=== PATIENT | male | born 1945 | race Two or more races ===

== ENCOUNTER 2016-11-29 13:14 | Observation (INO) ==
[2016-11-29 13:32] LABS: BASOPHILS % (AUTO) 0.5 % (0.0-3.0); EOSINOPHILS # (AUTO) 0.2 K/ul (0.0-0.7); EOSINOPHILS % (AUTO) 2.7 % (0.0-7.0); HEMATOCRIT 36.1 % (42.0-52.0); HEMOGLOBIN 12.6 g/dl (14.0-18.0); IMMATURE GRANULOCYTE % (AUTO) 0.3 % (0.0-5.0); LYMPHOCYTES # (AUTO) 2.9 K/uL (0.60-3.4); LYMPHOCYTES % (AUTO) 36.9 (10.0-50.0); MEAN CORPUSCULAR HEMOGLOBIN 31.2 pg (27.0-31.0); MEAN CORPUSCULAR HGB CONC 34.9 (31.8-35.4); MEAN CORPUSCULAR VOLUME 89.4 fl (80.0-94.0); MONOCYTES # (AUTO) 0.6 K/uL (0.4-2.0); MONOCYTES % (AUTO) 7.7 (0-10); NEUTROPHILS % (AUTO) 51.9; PLATELET COUNT 201 10^3/uL (140-440); RED BLOOD COUNT 4.04 10^6/ul (4.70-6.10); WHITE BLOOD COUNT 7.77 K/ul (4.2-10.2)
[2016-11-29 14:09] LABS: ALANINE AMINOTRANSFERASE 17 U/L (12-78); ALBUMIN 4.2 g/dL (3.4-5.0); ALBUMIN/GLOBULIN RATIO 1.35; ALKALINE PHOSPHATASE 44 U/L (56-119); ANION GAP 13.9; ASPARTATE AMINO TRANSFERASE 29 U/L (15-37); BILIRUBIN,TOTAL 0.58 mg/dL (0.00-1.20); BLOOD UREA NITROGEN 15 mg/dL (7-18); CALCIUM 9.8 mg/dL (8.2-10.2); CARBON DIOXIDE 25 mmol/L (23-31); CHLORIDE 105 mmol/L (98-107); CREATINE KINASE 294 U/L; CREATININE 1.26 mg/dL (0.60-1.10); GLUCOSE 95 mg/dL (82-115); POTASSIUM 3.9 mmol/L (3.5-5.1); SODIUM 140 mmol/L (136-145); TOTAL PROTEIN 7.3 g/dL (5.8-8.1)
[2016-11-29 14:10] LABS: CREATINE KINASE MB 3.9 ng/ml (0.0-3.6)
--- NOTE | 2016-11-29 14:24 | ED.PDOC ---
General ED Provider: Dr. TYRESE GOMEZ Chief Complaint: Chest Pain Stated Complaint: chest pain Time Seen by Physician: 13:23 (seen with respiratory , and mary) Mode of Arrival: Walk-In Information Source: Patient Exam Limitations: No limitations Primary Care Provider: SCARLET ANTONY Nursing and Triage Documentation Reviewed and Agree: Yes Cardiovascular Complaint Exam - Chest Pain Complaint/Exam Onset: Gradual Duration: this morning Symptoms Are: Still present Initial Severity: Mild Current Severity: None Location: Reports: Midsternal Pain Radiates: Reports: None Character: Reports: Dull, Aching Aggravating: Reports: None Alleviating: Reports: None Associated Signs and Symptoms: Reports: Hemoptysis Prior Care for this Complaint: No Recent Stress Test: No Recent Echo/LV Function: No JVD Present: No Subcutaneous Emphysema Present: No Diminshed Breath Sounds: No Reproducible Chest Wall Pain: No Bilateral Pulses Present: Yes Unequal Pulses Noted: No If Risk Factors for AMI/ACS Consider: EKG, Cardiac Enzymes Review of Systems - Review Of Systems Constitutional: Reports: No symptoms Eyes: Reports: No symptoms Ears, Nose, Mouth, Throat: Reports: No symptoms Respiratory: Reports: No symptoms Cardiac: Reports: Chest pain GI: Reports: No symptoms : Reports: No symptoms Musculoskeletal: Reports: No symptoms Skin: Reports: No symptoms Neurological: Reports: No symptoms Endocrine: Reports: No symptoms Hematologic/Lymphatic: Reports: No symptoms All Other Systems: Reviewed and Negative Past Medical History - Past Medical History Previously Healthy: Yes Endocrine: Reports: Dyslipidemia Cardiovascular: Reports: None Respiratory: Reports: None Hematological: Reports: None Gastrointestinal: Reports: GERD Genitourinary: Reports: None Neuro/Psych: Reports: None Musculoskeletal: Reports: None Cancer: Reports: None - Surgical History General Surgical History: Reports: None - Family History Family History: Reports: None - Social History Smoking Status: Never smoker Hx Substance Use: No Alcohol Screening: None - Immunizations Tetanus Shot up to Date: No Physical Exam - Physical Exam Appearance: Well-appearing, No pain distress, Well-nourished Eyes: MARK, EOMI, Conjunctiva clear ENT: Ears normal, Nose normal, Oropharynx normal Respiratory: Airway patent, Breath sounds clear, Breath sounds equal, Respirations nonlabored Cardiovascular: RRR, Pulses normal, No rub, No murmur GI/: Soft, Nontender, No masses, Bowel sounds normal, No Organomegaly Musculoskeletal: Normal strength, ROM intact, No edema, No calf tenderness Skin: Warm, Dry, Normal color Neurological: Sensation intact, Motor intact, Reflexes intact, Cranial nerves intact, Alert, Oriented Psychiatric: Affect appropriate, Mood appropriate Interpretation - Radiology Interpretation Radiology Interpretation By: Radiologist Radiology Results: Negative Exam Interpreted: CXR - Carpet Cutter Rate: Normal Rhythm: Sinus Ectopy: None Physician Notification - Case Discussed Physician Notified: pmd Time of Notification: 14:24 (admitt telm) Admit To: Inpatient Critical Care Note - Critical Care Note Total Time (mins): 0 Course - Course Hematology/Chemistry: 11/29/16 13:26 11/29/16 13:26 Orders, Labs, Meds: Lab Review 11/29/16 13:26 WBC 7.77 RBC 4.04 L Hgb 12.6 L Hct 36.1 L MCV 89.4 MCH 31.2 H MCHC 34.9 RDW Coeff of Zelda 13.5 Plt Count 201 Immature Gran % (Auto) 0.3 Neut % (Auto) 51.9 Lymph % (Auto) 36.9 [place] % (Auto) 7.7 Eos % (Auto) 2.7 Baso % (Auto) 0.5 Immature Gran # (Auto) 0.0 Neut # 4.0 Lymph # 2.9 [place] # 0.6 Eos # 0.2 Baso # 0.0 Sodium 140 Potassium 3.9 Chloride 105 Carbon Dioxide 25 Anion Gap 13.9 BUN 15 Creatinine 1.26 H Estimated GFR (MDRD) 57.00 BUN/Creatinine Ratio 11.90 Glucose 95 Calcium 9.8 Total Bilirubin 0.58 AST 29 ALT 17 Alkaline Phosphatase 44 L Total Creatine Kinase 294 CK-MB (CK-2) 3.9 H CK-MB (CK-2) % 1.66557 Troponin I < 0.0100 Total Protein 7.3 Albumin 4.2 Globulin 3.1 Albumin/Globulin Ratio 1.35 Orders Category Date Time Status EKG-(ED ONLY) Stat CARDIO 11/29/16 13:23 Completed ED IV/MEDIPORT/POWERPORT .ONCE EMERGENCY 11/29/16 13:23 Active CBC W/ AUTO DIFF Stat LAB 11/29/16 13:26 Completed COMPREHENSIVE METABOLIC PANEL Stat LAB 11/29/16 13:26 Completed CREATINE KINASE Stat LAB 11/29/16 13:26 Completed TROPONIN I Stat LAB 11/29/16 13:26 Completed 0.9 % Sodium Chloride [Saline Flush] MEDS 11/29/16 13:23 Active 1 syr IVF PRN PRN Medications Generic Name Dose Route Start Last Admin Trade Name Freq PRN Reason Stop Dose Admin Sodium Chloride 1 syr 11/29/16 13:23 Saline Flush IVF PRN PRN To flush IV Vital Signs: Temp Pulse Resp BP Pulse Ox 11/29/16 13:22 98.6 F 73 16 109/83 95 CORINNA Risk Score CORINNA Risk Score: Risk Score Odds of by 30D 0 0.1 (0.1-0.2) 1 0.3 (0.2-0.3) 2 0.4 (0.3-0.5) 3 0.7 (0.6-0.9) 4 1.2 (1.0-1.5) 5 2.2 (1.9-2.6) 6 3.0 (2.5-3.6) 7 4.8 (3.8-6.1) Departure - Departure Time of Disposition: 14:24 Disposition: ADMITTED INPATIENT Discharge Problem: Chest pain Instructions: Chest Pain (ED) Condition: Good Pt referred to PMD for follow-up: Yes (admitt) Allergies/Adverse Reactions: Allergies No Known Allergies Allergy (Unverified 07/13/14 11:05) Home Medications: Ambulatory Orders Ranitidine HCl [Zantac] 150 mg PO BID 08/25/13 Aspirin [Ecotrin] 81 mg PO DAILY 07/13/14 Atorvastatin Calcium [Lipitor] 20 mg PO DAILY 07/13/14 Calcium Carbonate [Calcium] 600 mg PO DAILY 07/13/14 Multivit-Min/FA/Lycopene/Lut [Centrum Silver Tablet] 1 each PO DAILY 07/13/14 Disposition Discussed With: Patient
--- NOTE | 2016-11-29 15:13 | DI ---
EXAM: Chest two view, frontal and lateral views. HISTORY: Chest pain. COMPARISON: 07/13/2014. FINDINGS: The heart size is normal. There is no pulmonary vascular congestion. The lungs are asif r save for calcified granulomatous change. No pleural effusion or pneumothorax is seen. No acute o sseous abnormality identified. IMPRESSION: No acute cardiopulmonary process.
[2016-11-29 15:38] VITALS: BMI 26.2
[2016-11-29] MEDS ORDERED: TORADOL IVP STA (15:55)
[2016-11-29] MEDS ORDERED: DECADRON 4 MG/ML SDV IM STA (15:55)
[2016-11-29] MEDS ORDERED: TORADOL IVP PRN (15:55)
[2016-11-29] MEDS: SODIUM CHLORIDE 1,000 ML IV SCH (16:29)
[2016-11-29 20:51] LABS: CREATINE KINASE 252 U/L
[2016-11-29 20:53] LABS: CREATINE KINASE MB 4.2 ng/ml (0.0-3.6)
[2016-11-30] MEDS ORDERED: MYLANTA SUSP PO STA (03:58)
[2016-11-30 05:19] LABS: BASOPHILS % (AUTO) 0.1 % (0.0-3.0); HEMATOCRIT 35.3 % (42.0-52.0); HEMOGLOBIN 12.2 g/dl (14.0-18.0); IMMATURE GRANULOCYTE % (AUTO) 0.4 % (0.0-5.0); LYMPHOCYTES # (AUTO) 1.1 K/uL (0.60-3.4); MEAN CORPUSCULAR HGB CONC 34.6 (31.8-35.4); MEAN CORPUSCULAR VOLUME 89.6 fl (80.0-94.0); MONOCYTES # (AUTO) 0.1 K/uL (0.4-2.0); NEUTROPHILS # (AUTO) 6.6 K/ul (2.0-6.9); NEUTROPHILS % (AUTO) 84.5; PLATELET COUNT 187 10^3/uL (140-440); RED BLOOD COUNT 3.94 10^6/ul (4.70-6.10); WHITE BLOOD COUNT 7.83 K/ul (4.2-10.2)
[2016-11-30] MEDS: SODIUM CHLORIDE 1,000 ML IV SCH (05:29)
[2016-11-30 05:43] LABS: ALBUMIN 3.5 g/dL (3.4-5.0); ALBUMIN/GLOBULIN RATIO 1.3; ANION GAP 19.2; BILIRUBIN,TOTAL 0.42 mg/dL (0.00-1.20); BUN/CREATININE RATIO 15.65; CALCIUM 8.5 mg/dL (8.2-10.2); CREATININE 1.15 mg/dL (0.60-1.10); POTASSIUM 4.2 mmol/L (3.5-5.1); TOTAL PROTEIN 6.2 g/dL (5.8-8.1)
[2016-11-30 05:58] LABS: CREATINE KINASE 253 U/L
[2016-11-30 06:02] LABS: CREATINE KINASE MB 4.4 ng/ml (0.0-3.6)
[2016-11-30] MEDS ORDERED: LIPITOR PO SCH ×2 (09:00→21:00)
[2016-11-30] MEDS ORDERED: ASPIRIN EC PO SCH (09:00)
[2016-11-30 11:13] VITALS: BP 110/72; TEMP 96.3
--- NOTE | 2016-12-02 10:47 | ECHOSTRESS ---
Date of Exam: 11/30/16 Ordering Physician: SCARLET ANTONY Reason for Echo: LEFT CHEST PAIN, HTN, STRESS TEST--NO ISCHEMIA M-Mode Normal Adult Results LV Dimensions Normal Adult Results AoV Opening excursions >1.6 LVEDD-base- 3.5-5.8 Ao root dimensions 2.0-3.7 LVESD-base- 3.1-4.6 L. Atrium dimensions 1.9-3.8 Post. Wall thickness 0.8-1.1 IV septum (thickness) 0.7-1.2 Post. Wall excursion 0.72-1.3 Septal motion Systolic motion R. Ventricular cavity 1.5-2.0 LVEF 60% Paradoxical septal wall motion 2-D: NORMAL LEFT VENTRICULAR CONTRACTILITY--RESTING AND POST EXERCISE M-MODE: MV: AV: TV: PV: CHAMBER SIZE: WALL MOTION: NORMAL LEFT VENTRICULAR CONTRACTILITY--RESTING AND POST EXERCISE PERICARDIUM: INTERPRETATION: 1. NORMAL LEFT VENTRICULAR CONTRACTILITY--RESTING AND POST EXERCISE MTDD
--- NOTE | 2016-12-02 11:10 | ECHO2D ---
Date of Exam: 11/30/16 Ordering Physician: SCARLET ANTONY Reason for Echo: LEFT CHEST PAIN/ HYPERTENSION Auscultation: S1, S2 M-Mode Normal Adult Results LV Dimensions Normal Adult Results AoV Opening excursions >1.6 >1.6 LVEDD-base- 3.5-5.8 4.8 Ao root dimensions 2.0-3.7 3.0 LVESD-base- 3.1-4.6 L. Atrium dimensions 1.9-3.8 3.1 Post. Wall thickness 0.8-1.1 1.0 IV septum (thickness) 0.7-1.2 1.1 Post. Wall excursion 0.72-1.3 NORMAL Septal motion NORMAL Systolic motion R. Ventricular cavity 1.5-2.0 NORMAL LVEF 60% 62% Paradoxical septal wall motion NORMAL 2-D : 2-D M Mode Echocardiogram was performed using apical four chamber and left parasternal long and short axis views. Mitral, tricuspid and aortic valves appear to be normal. Contractility of the left ventricle seems to be normal, so is the cavity size. Left atrial cavity size and aortic root appear to be normal. There is no pericardial effusion. There is no thrombus noted in the left ventricular or left aortic cavity. No mitral valve prolapse noted. M-MODE: MV: NORMAL AV: NORMAL TV: NORMAL PV: CHAMBER SIZE: NORMAL WALL MOTION: NORMAL PERICARDIUM: NORMAL INTERPRETATION: 1. NORMAL 2 "D" "M" MODE ECHO MTDD
--- NOTE | 2016-12-02 11:17 | MODSTECHO ---
Ordering Physician: SCARLET ANTONY Date of Test: 11/30/16 Medical History: CHEST PAIN, HYPERTENSION Current Medications: MYLANTA, LIPITOR, TORADOL Physical Findings: S1, S2, NO S3 Resting EKG: SINUS RHYTHM/NO ACUTE CHANGES Target Heart Rate: 127 STAGE MPH/GRADE HEART RATE BPM BLOOD PRESSURE mmhg RHYTHM S-T SEGMENT UP DOWN SYMPTOMS,COMMENTS At Rest 65 112/60 SR X NONE 1 1.7/0% 2 1.7/5% 3 1.7/10% 4 2.5/12% 5 3.4/14% 6 4.2/16% 7 5.18% Immediately after 129 SR X FATIGUE Total Time: 1:34 Maximum Heart Rate Reached: 129 Reason for Termination: FATIGUE 3 MINUTES POST EXERCISE: HR 68 BPM, BP 110/70 MMHG, SR, +/- INTERPRETATION: 95% OXYGEN SATURATION ON ROOM AIR AND 96% WITH EXERCISE 1. NO EVIDENCE OF ISCHEMIA BY ST-T WAVE 2. NO CHEST PAIN OR CHEST DISCOMFORT 3. NO ARRHYTHMIAS 4. BLOOD PRESSURE RESPONSE NORMAL NORMAL LEFT VENTRICULAR CONTRACTILITY--RESTING AND POST EXERCISE MTDD
--- NOTE | 2016-12-02 11:58 | HP ---
DATE OF SERVICE: 11/29/16 - ADMITTING NOTE REASON FOR HOSPITALIZATION: Chest pain. HISTORY OF PRESENT ILLNESS: Bernard Kam, a 71-year-old male came to the emergency room because of left- sided localized chest pain, which was mid axillary line over the pectoris muscle laterally. The patient said that when he had that he had mild sweating, no shortness of breath, onset of pain was more than nearly one hours' duration before he came to the emergency room. The patient does not have any exertional chest discomfort or shortness of breath with exertion. REVIEW OF SYSTEMS: CONSTITUTIONAL: No night sweats. No fatigue, malaise, lethargy. No fever or chills. HEENT: Eyes: No visual changes. No eye pain. No eye discharge. ENT: No runny nose. No epistaxis. No sinus pain. No sore throat. No odynophagia. No congestion. RESPIRATORY: No cough, no congestion. No hemoptysis. CARDIOVASCULAR: No angina symptoms. No CHF symptoms. Chest pain, left-sided, localized, unrelated to exertion, no radiation of pain, just at one spot over a quarter size area. No palpitations. No shortness of breath. GASTROINTESTINAL: No abdominal pain. No nausea or vomiting. No diarrhea or constipation. No hematemesis. No hematochezia. GENITOURINARY: No urgency. No frequency. No dysuria. No hematuria. No obstructive symptoms. No discharge. No pain. No significant abnormal bleeding. MUSCULOSKELETAL: No musculoskeletal pain; no joint swelling. NEUROLOGICAL: No headache. No neck pain. No syncope. No seizures. No dizziness. PSYCHIATRIC: Not anxious. No depression. No suicidal thoughts. No homicidal thoughts. SKIN: No rash. No lesions. No wounds. ENDOCRINE: No unexplained weight loss. No weight gain. HEMATOLOGIC/LYMPHATIC: No anemia. No purpura. No petechiae. No prolonged or excessive bleeding. No palpable lymph nodes. PAST MEDICAL/SURGICAL HISTORY: Hypertension Dyslipidemia Generalized osteoarthritis Colonoscopy 07/06/14 MEDICATIONS: (HOME) Ranitidine (Zantac) 150 mg p.o. b.i.d. Calcium 600 mg p.o. daily Aspirin 81 mg p.o. daily Multivitamin/Lycopene/Lut (Centrum Silver) one each p.o. daily Atorvastatin Calcium (Lipitor) 20 mg p.o. daily Tylenol for arthritis ALLERGIES: NKDA PERSONAL/FAMILY/SOCIAL HISTORY: The patient is , lives with . Nonsmoker. No alcohol abuse. He works at the local [employer]. He does all activity of daily living. PHYSICAL EXAMINATION: GENERAL: The patient is oriented to time, place and person. VITAL SIGNS: Temperature 98.5, pulse 70, respiratory rate 15, BP 136/76. HEENT: Head normocephalic, atraumatic. Eyes: Extraocular muscles are intact. Pupils are equal, round and reactive to light and accommodation. Ears: No lesions. Nose appeared normal. Throat: No exudate or erythema. NECK: Supple. No JVD, no carotid bruit. No lymphadenopathy or thyromegaly. LUNGS: Clear to auscultation. Percussion note normal. Chest symmetrical. HEART: S1, S2, no S3. No murmurs. No cyanosis or clubbing. No ascites. Pulses: Dorsalis pedis and posterior tibial pulses +1 to +2 both sides. ABDOMEN: Soft. Nontender. Bowel sounds active. No CVA tenderness. No mass felt. EXTREMITIES: No edema. Full range of motion of all extremities, equal. NEUROLOGIC: No focal deficit. Cranial nerves II through XII are grossly intact. No headache, no double vision or headache. SKIN: Not dry. Intact. Turgor - normal. LYMPHATIC: No palpable lymph nodes/no lymphedema. MUSCULOSKELETAL: Normal joints with no swelling. Muscle tone is normal. LABS/EKG: EKG - sinus rhythm. No acute changes. Telemetry sinus rhythm, no ST wave change. Cardiac markers are negative. CK-MB 3.5 which is normal. Troponin negative. ASSESSMENT: 1. CHEST PAIN SEEMS TO BE ATYPICAL FOR CORONARY INSUFFICIENCY. RISK FACTORS FOR CORONARY ARTERY DISEASE, HYPERTENSION, DYSLIPIDEMIA, INACTIVITY. 2. GENERALIZED OSTEOARTHRITIS. PLAN: 1. Continue telemetry. 2. Toradol 30 mg IV now. 3. 1 cc Decadron IM now. (#2 and #3 for musculoskeletal type of pain the patient has.) 4. Coronary artery disease and risk factors discussed with the patient. 5. Will do echocardiogram in the morning and stress echo along with it. CONDITION: Stable. It is to be noted that I speak the patient's language which is Gujarati. TIME SPENT: More than 30 minutes. [facility]
--- NOTE | 2016-12-03 14:53 | DS ---
DATE OF SERVICE: 11/30/16 - DISCHARGE NOTE/DISCHARGE SUMMARY - OBSERVATION FINAL DIAGNOSIS: 1. CHEST PAIN, NONCARDIAC 2. GENERALIZED OSTEOARTHRITIS INVOLVING CERVICAL SPINE AND LUMBAR SPINE 3. DYSLIPIDEMIA 4. HYPERGLYCEMIA 5. GLUCOSE INTOLERANCE 6. MILD ANEMIA 7. GASTROESOPHAGEAL REFLUX DISEASE DISCHARGE INSTRUCTIONS: Please call your primary care physician or go to the nearest emergency room if you have any adverse reactions. . MEDICATIONS AT DISCHARGE: 1. Ranitidine 150 mg twice a day 2. Aspirin 81 mg p.o. daily 3. Lipitor 20 mg p.o. daily 4. Calcium Carbonate and multivitamin as before NEW PRESCRIPTIONS: None DIET INSTRUCTIONS: Heart Healthy diet. ACTIVITY: As the patient tolerates. SMOKING: Nonsmoker DISEASE SPECIFIC EDUCATION: HOSPITAL COURSE: 71-year-old white male hospitalized with chest pain which was practically atypical. The patient was worked up with cardiac markers which were negative. Telemetry showed sinus rhythm with no acute changes. The patient's echo showed normal LV contractility. Stress echo was negative for any ischemia. The patient was up and about. The patient was reassured that his pain was practically atypical. Risk factors were explained to him. Hyperglycemia was discussed with him. The patient's A1C has been acceptable, less than 6.5. Diet was discussed with him with activity. Condition at the time of discharge stable. The patient, on the day of discharge, had hemoglobin of 12.2, hematocrit 35, WBC 7,800, normal differential. The patient's vitals were temperature 97.7, pulse 60, respiratory rate 16, BP 109/73, pulse ox 95%. PHYSICAL EXAMINATION: LUNGS: Clear. HEART: S1, S2, no S3. ABDOMEN: Soft. Bowel sounds active. LABS: Hemoglobin 12.2, hematocrit 35, WBC 7,800, normal differential. Creatinine 1.1, BUN 18, potassium 4.2, glucose 152. CONDITION: Stable TIME SPENT: More than [address] [facility]
--- NOTE | 2016-12-04 11:01 | PN ---
CODING FOR BILLING 11/29/16 - OBSERVATION - LEVEL 5 11/30/16 - DISCHARGE - EXTENSIVE MTDD
== END 2016-11-30 14:15 | disposition home or self-care (01) ==
LOC: ED 13:14 → INTOOBSV 14:35 → MEDSURG A 14:35
PROVIDERS: ADMIT Internal Medicine; ATTEND Internal Medicine
DX: R07.89 Other chest pain (principal); E74.39 Other disorders of intestinal carbohydrate absorption; K21.9 Gastro-esophageal reflux disease without esophagitis; D64.9 Anemia, unspecified; M47.892 Other spondylosis, cervical region; M47.896 Other spondylosis, lumbar region; E78.5 Hyperlipidemia, unspecified; R73.9 Hyperglycemia, unspecified
CPT/HCPCS: 36415; 80053; 82550; 82553; 84484; 85025; 85379; 93005; 93010; 99217; 99220; 99284

== ENCOUNTER 2017-08-29 11:32 | Outpatient (CLI) ==
--- NOTE | 2017-08-29 14:49 | CT ---
Exam: CT maxillofacial without intravenous contrast. Comparison: CT brain performed 07/13/2014. Reason for exam: Salivary gland swelling. FINDINGS: No displaced facial fractures are seen. The frontal sinuses, maxillary sinuses, and sphen oid sinuses appear normally pneumatized. There is mild mucosal thickening in the ethmoid sinuses. N o displaced facial fractures are seen. No inflammatory changes are seen within the parotid, submandi bular, or thyroid glands. The partially imaged aerodigestive tract appears unremarkable. The patient is partially edentulous. Moderate to severe degenerative disease is seen within the cervical spine with intervertebral body di sc space height loss and reversal of the cervical lordotic curve. There are multiple sub centimeter lymph nodes seen in both parotid glands. Impression: 1. No displaced facial fractures. 2. No discrete fluid collections or contrast enhancing mass lesions. 3. Small sub-centimeter lymph nodes are seen in both parotid glands. 4. Mucosal thickening in the ethmoid sinuses may represent sinus disease. 5. Moderate to severe degenerative disease in the cervical spine
== END 2017-08-29 11:33 | disposition home or self-care (01) ==
LOC: RAD 11:32
PROVIDERS: ATTEND Internal Medicine
DX: K11.8 Other diseases of salivary glands (principal)

== ENCOUNTER 2017-08-29 15:56 | Emergency (ER) | payer OTHER ==
[2017-08-29 16:00] VITALS: BP 102/60; TEMP 97.7; BMI 25.5
[2017-08-29] MEDS ORDERED: ASPIRIN CHEWABLE PO STA (16:10)
--- NOTE | 2017-08-29 18:10 | DI ---
Exam: Single x-ray of the chest. Comparison: 11/29/2016 Reason for exam: Pain. FINDINGS: No pneumothorax, pleural effusion, or focal consolidation. There is elevation right hemid iaphragm not significantly changed from the previous exam. The cardiac silhouette is not enlarged. Impression: No acute cardiopulmonary process. Report faxed at [phone] hours on 08/29/2017
--- NOTE | 2017-08-29 18:23 | ED.PDOC ---
General ED Provider: Dr. TYRESE GOMEZ Chief Complaint: Chest Pain Stated Complaint: CHEST PAIN Time Seen by Physician: 15:00 (CHEST PAIN ONSET 9 M) Mode of Arrival: Walk-In Information Source: Patient Exam Limitations: No limitations Primary Care Provider: SCARLET ANTONY Nursing and Triage Documentation Reviewed and Agree: Yes Reviewed sepsis parameters & appropriate labs ordered?: Yes System Inflammatory Response Syndrome: Not Applicable Sepsis Protocol: For patient's 13 years and over: Temp is 96.8 and below OR 101 and greater Pulse >90 BPM Resp >20/minute Acutely Altered Mental Status Are patient's symptoms suggestive of a new infection, such as: -Pneumonia -Skin, Soft Tissue -Endocarditis -UTI -Bone, Joint Infection -Implantable Device -Acute Abdominal Infection -Wound Infection -Meningitis -Blood Stream Catheter Infection -Unknown System Inflammatory Response Syndrome: Not Applicable Cardiovascular Complaint Exam - Chest Pain Complaint/Exam Onset: Gradual Duration: 7 HOURS Symptoms Are: Resolved Timing: Intermittent Length of Chest Pain Episodes: 7 H Initial Severity: Mild Current Severity: Mild Location: Reports: Midsternal Pain Radiates: Reports: None Character: Reports: Dull, Aching. Denies: Tightness, Burning, Heaviness, Pressure, Squeezing, Sharp, Stabbing Aggravating: Reports: None Alleviating: Reports: None Associated Signs and Symptoms: Denies: Diaphoresis, Nausea, Vomiting, Fever, Palpitations, Cough, Hemoptysis, Back pain, Abdominal pain, Dizziness, Short of air, Calf pain, Calf swelling Related History: Reports: Similar episode Related Surgical History: Reports: None History of Healthcare-Acquired Pneumonia: Reports: No AMI/ACS Risk Factors: Reports: Dyslipidemia TAD Risk Factors: Reports: None Pulmonary Embolism Risk Factors: Reports: None Prior Care for this Complaint: No Recent Stress Test: No Recent Echo/LV Function: No JVD Present: No Subcutaneous Emphysema Present: No Diminshed Breath Sounds: No Reproducible Chest Wall Pain: No Bilateral Pulses Present: No Unequal Pulses Noted: No If Risk Factors for AMI/ACS Consider: EKG Review of Systems - Review Of Systems Constitutional: Reports: No symptoms Eyes: Reports: No symptoms Ears, Nose, Mouth, Throat: Reports: No symptoms Respiratory: Reports: No symptoms Cardiac: Reports: Chest pain GI: Reports: No symptoms : Reports: No symptoms Musculoskeletal: Reports: No symptoms Skin: Reports: No symptoms Neurological: Reports: No symptoms Endocrine: Reports: No symptoms Hematologic/Lymphatic: Reports: No symptoms All Other Systems: Reviewed and Negative Past Medical History - Past Medical History Previously Healthy: Yes Endocrine: Reports: Dyslipidemia Cardiovascular: Reports: None Respiratory: Reports: None Hematological: Reports: None Gastrointestinal: Reports: GERD Genitourinary: Reports: None Neuro/Psych: Reports: None Musculoskeletal: Reports: None Cancer: Reports: None - Surgical History General Surgical History: Reports: None - Family History Family History: Reports: None - Social History Smoking Status: Never smoker Hx Substance Use: No Alcohol Screening: None - Immunizations Tetanus Shot up to Date: No Physical Exam - Physical Exam Appearance: Well-appearing, No pain distress, Well-nourished Eyes: MARK, EOMI, Conjunctiva clear ENT: Ears normal, Nose normal, Oropharynx normal Respiratory: Airway patent, Breath sounds clear, Breath sounds equal, Respirations nonlabored Cardiovascular: RRR, Pulses normal, No rub, No murmur GI/: Soft, Nontender, No masses, Bowel sounds normal, No Organomegaly Musculoskeletal: Normal strength, ROM intact, No edema, No calf tenderness Skin: Warm, Dry, Normal color Neurological: Sensation intact, Motor intact, Reflexes intact, Cranial nerves intact, Alert, Oriented Psychiatric: Affect appropriate, Mood appropriate Interpretation - Stone Polisher Rate: Normal Rhythm: Sinus Ectopy: None - EKG Interpretation Rate: Normal Rhythm: Sinus Ectopy: None Mcgregor: NL ST Segment: Normal Physician Notification - Case Discussed Physician Notified: PMD Time of Notification: 18:27 Admit To: Inpatient Critical Care Note - Critical Care Note Total Time (mins): 0 Course - Course Hematology/Chemistry: 08/29/17 16:41 08/29/17 16:51 Orders, Labs, Meds: Lab Review 08/29/17 08/29/17 16:41 16:51 WBC 8.53 RBC 3.16 L Hgb 9.8 L Hct 29.6 L MCV 93.7 MCH 31.0 MCHC 33.1 RDW Coeff of Zelda 13.7 Plt Count 205 Immature Gran % (Auto) 0.4 Neut % (Auto) 52.6 Lymph % (Auto) 33.9 [place] % (Auto) 9.6 Eos % (Auto) 2.7 Baso % (Auto) 0.8 Immature Gran # (Auto) 0.0 Neut # (Auto) 4.5 Lymph # (Auto) 2.9 [place] # (Auto) 0.8 Eos # (Auto) 0.2 Baso # (Auto) 0.1 Sodium 142 Potassium 3.9 Chloride 107 Carbon Dioxide 26 Anion Gap 12.9 BUN 17 Creatinine 1.28 H Estimated GFR (MDRD) 55.00 BUN/Creatinine Ratio 13.28 Glucose 95 Calcium 9.6 Total Bilirubin 0.5 AST 27 ALT 17 Alkaline Phosphatase 46 L Total Creatine Kinase 277 CK-MB (CK-2) 5.1 H* CK-MB (CK-2) % 1.38341 Troponin I < 0.0100 Total Protein 7.2 Albumin 3.9 Globulin 3.3 Albumin/Globulin Ratio 1.18 Orders Category Date Time Status EKG-(ED ONLY) Stat CARDIO 08/29/17 16:41 Completed CBC W/ AUTO DIFF Stat LAB 08/29/17 16:41 Completed COMPREHENSIVE METABOLIC PANEL Stat LAB 08/29/17 16:51 Completed CREATINE KINASE Stat LAB 08/29/17 16:51 Completed TROPONIN I Stat LAB 08/29/17 16:51 Completed Aspirin [Aspirin Chewable] MEDS 08/29/17 16:10 Discontinued 243 mg PO ONCE STA Aspirin [Aspirin EC] MEDS 08/30/17 09:00 Ordered 81 mg PO DAILY Atorvastatin Calcium [Lipitor] MEDS 08/30/17 09:00 Ordered 20 mg PO DAILY CHEST, 1V AP ONLY Stat RADS 08/29/17 16:45 Completed Medications Generic Name Dose Route Start Last Admin Trade Name Freq PRN Reason Stop Dose Admin Aspirin 81 mg 08/30/17 09:00 Aspirin Ec PO DAILY [facility] Atorvastatin Calcium 20 mg 08/30/17 09:00 Lipitor PO DAILY [facility] Discontinued Medications Generic Name Dose Route Start Last Admin Trade Name Freq PRN Reason Stop Dose Admin Aspirin 243 mg 08/29/17 16:10 08/29/17 16:27 Aspirin Chewable PO 08/29/17 16:11 243 mg ONCE STA Administration Vital Signs: Temp Pulse Resp BP Pulse Ox 08/29/17 15:56 97.7 F 87 20 102/60 94 L CORINNA Risk Score CORINNA Risk Score: Risk Score Odds of by 30D 0 0.1 (0.1-0.2) 1 0.3 (0.2-0.3) 2 0.4 (0.3-0.5) 3 0.7 (0.6-0.9) 4 1.2 (1.0-1.5) 5 2.2 (1.9-2.6) 6 3.0 (2.5-3.6) 7 4.8 (3.8-6.1) Departure - Departure Time of Disposition: 18:27 Disposition: ADMITTED INPATIENT Discharge Problem: Chest pain Qualifiers: Chest pain type: unspecified Qualified Code(s): R07.9 - Chest pain, unspecified Instructions: Chest Pain (ED) Condition: Good Pt referred to PMD for follow-up: Yes IPMP verified?: No Additional Instructions: Please call your Family Physician as soon as possible to schedule a follow-up appointment. Allergies/Adverse Reactions: Allergies No Known Allergies Allergy (Unverified 08/29/17 16:00) Home Medications: Ambulatory Orders Ranitidine HCl [Zantac] 150 mg PO BID 08/25/13 Aspirin [Ecotrin] 81 mg PO DAILY 07/13/14 Atorvastatin Calcium [Lipitor] 20 mg PO DAILY 07/13/14 Calcium Carbonate [Calcium] 600 mg PO DAILY 07/13/14 Multivit-Min/FA/Lycopene/Lut [Centrum Silver Tablet] 1 each PO DAILY 07/13/14
[2017-08-29] MEDS ORDERED: SODIUM CHLORIDE 1,000 ML IV SCH (18:30)
[2017-08-30] MEDS ORDERED: ASPIRIN EC PO SCH (09:00)
[2017-08-30] MEDS ORDERED: LIPITOR PO SCH (09:00)
== END 2017-08-29 19:19 | disposition other institution (70) ==
LOC: ED 15:56 → UNDOADMIN 18:34 → MEDSURG A 18:34 → ED 19:19
DX: R07.9 Chest pain, unspecified (principal); E78.5 Hyperlipidemia, unspecified; Z79.899 Other long term (current) drug therapy; K11.8 Other diseases of salivary glands
CPT/HCPCS: 36415; 80053; 82550; 82553; 84484; 85025; 93005; 93010; 99284